=== PATIENT | female | born 1975 | race Asian ===

== ENCOUNTER 2023-03-16 09:01 | Outpatient (CLI) | payer BC | END 2023-03-16 09:02 | disposition home or self-care (01) | LOC: BICULT 09:01 | PROVIDERS: ATTEND Family Medicine | DX: K82.4 Cholesterolosis of gallbladder (principal) | CPT/HCPCS: 76705 ==

== ENCOUNTER 2024-05-12 09:27 | Outpatient (CLI) | payer BC | END 2024-05-12 09:28 | disposition home or self-care (01) | LOC: BICULT 09:27 | PROVIDERS: ATTEND Family Medicine | DX: K82.4 Cholesterolosis of gallbladder (principal) | CPT/HCPCS: 76705 ==